=== PATIENT | female | born 1990 | race Caucasian/White ===

== ENCOUNTER 2016-12-22 19:35 | Emergency (ER) | payer BC, OTHER ==
[~2016-12-22] VITALS: Ht 182.9 cm; Wt 76.0 kg
[~2016-12-22 19:35] MED LIST: IBUP-232 PO; OXYC1TAB63 PO; SENN1TAB PO
[2016-12-22 19:39] VITALS: BP 118/68; PULSE 72; RESP 20; TEMP 98.1; O2SAT 99
--- NOTE | 2016-12-22 20:08 | PD ---
HPI Chief Complaint: GI Complaint Time Seen by Provider: 20:03 Travel History International Travel<30 days: No Contact w/Intl Traveler<30days: No Traveled to known affect area: No History of Present Illness HPI 26-year-old female presents to the emergency department by private transportation for evaluation of rectal bleeding. Patient states this morning she felt well. This afternoon she had a bowel movement and noticed that slight stinging discomfort and some small amount of blood in the toilet water. Patient states later this afternoon she had urge to have a bowel movement and again passed this time a large amount of blood in the toilet. Patient thinks that she may have hemorrhoids. Patient is encouraged come to the hospital by her fit father who is a PA. Patient states intermittently she has had some left -sided lower abdominal pain. Patient denies . Patient has an IUD. Patient's had no abnormal vaginal bleeding. No dysuria frequency or urgency. No fever chills or nausea or vomiting. Patient does not report any shortness of breath diaphoresis near-syncope or syncope. Patient states this time her pain is 0/10 in intensity but with bowel movement pain can be as severe as 7/10 in intensity. 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 [facility] Past Medical History Narrative Medical IUD; ,Lasik; no tobacco; nursing notes reviewed Medical History: Denies Significant Hx Tetanus Vaccination: < 5 Years Influenza Vaccination: Yes ?: Not LMP: IUD Past Surgical History Section: Yes Eye Surgery: Yes (Lasik) Social History Alcohol Use: No Tobacco Use: No Substance Use: No Allergies-Medications (Allergen,Severity, Reaction): Coded Allergies: Penicillin (Verified Allergy, Mild, 12/22/16) Reported Meds & Prescriptions Reported Meds & Active Scripts Active Narrative Medication steroid eye drops-Lasik Review of Systems Except as stated in HPI: all other systems reviewed are Neg General / Constitutional: No: Fever, Chills Cardiovascular: No: Chest Pain or Discomfort Gastrointestinal: Positive: Abdominal Pain, Hematochezia, No: Nausea, Vomiting Genitourinary: No: Dysuria, Hematuria, Vaginal Bleeding Musculoskeletal: No: Pain Neurologic: No: Weakness Hematologic/Lymphatic: No: Lymph Node Enlargement Physical Exam Narrative GENERAL: Well-developed well-nourished female in no acute distress no respiratory distress SKIN: Warm and dry. HEAD: Normocephalic. EYES: No scleral icterus. No injection or drainage. NECK: Supple, trachea midline. No JVD or lymphadenopathy. CARDIOVASCULAR: Regular rate and rhythm without murmurs, gallops, or rubs. RESPIRATORY: Breath sounds equal bilaterally. No accessory muscle use. GASTROINTESTINAL: Abdomen soft, mild suprapubic and left lower quadrant tenderness to palpation without guarding or rebound, nondistended. MUSCULOSKELETAL: No cyanosis, or edema. BACK: Nontender without obvious deformity. No CVA tenderness. Data Data Last Documented VS Vital Signs Date Time Temp Pulse Resp B/P Pulse Ox O2 Delivery O2 Flow Rate FiO2 12/22/16 20:37 78 16 114/63 80 16 118/67 79 16 109/62 12/22/16 20:21 99 Room Air 12/22/16 19:39 98.1 Orders Complete Blood Count With Diff (12/22/16 20:03) Comprehensive Metabolic Panel (12/22/16 20:03) Prothrombin Time / Inr (Pt) (12/22/16 20:03) Act Partial Throm Time (Ptt) (12/22/16 20:03) Urinalysis - C+S If Indicated (12/22/16 20:03) Type And Screen (12/22/16 20:03) Ecg Monitoring (12/22/16 20:03) Iv Access Insert/Monitor (12/22/16 20:03) Orthostatic Vital Signs (12/22/16 20:03) Oximetry (12/22/16 20:03) Ed Urine Pregnancytest Poc (12/22/16 20:03) Ct Abd/Pel W Iv Contrast(Rout) (12/22/16 ) Iohexol 350 Inj (Omnipaque 350 Inj) (12/22/16 21:41) Labs Laboratory Tests Test 12/22/16 12/22/16 20:13 20:27 White Blood Count 7.6 TH/MM3 Red Blood Count 4.78 MIL/MM3 Hemoglobin 12.6 GM/DL Hematocrit 37.6 % Mean Corpuscular Volume 78.6 FL Mean Corpuscular Hemoglobin 26.4 PG Mean Corpuscular Hemoglobin 33.6 % Concent Red Cell Distribution Width 13.3 % Platelet Count 178 TH/MM3 Mean Platelet Volume 10.8 FL Neutrophils (%) (Auto) 55.5 % Lymphocytes (%) (Auto) 34.5 % Monocytes (%) (Auto) 5.8 % Eosinophils (%) (Auto) 3.4 % Basophils (%) (Auto) 0.8 % Neutrophils # (Auto) 4.2 TH/MM3 Lymphocytes # (Auto) 2.6 TH/MM3 Monocytes # (Auto) 0.4 TH/MM3 Eosinophils # (Auto) 0.3 TH/MM3 Basophils # (Auto) 0.1 TH/MM3 CBC Comment DIFF FINAL Differential Comment Prothrombin Time 10.7 SEC Prothromb Time International 1.0 RATIO Ratio Activated Partial 25.4 SEC Thromboplast Time Sodium Level 143 MEQ/L Potassium Level 3.7 MEQ/L Chloride Level 107 MEQ/L Carbon Dioxide Level 28.4 MEQ/L Anion Gap 8 MEQ/L Blood Urea Nitrogen 12 MG/DL Creatinine 0.86 MG/DL Estimat Glomerular Filtration 81 ML/MIN Rate Random Glucose 78 MG/DL Calcium Level 8.7 MG/DL Total Bilirubin 0.3 MG/DL Aspartate Amino Transf 9 U/L (AST/SGOT) Alanine Aminotransferase 21 U/L (ALT/SGPT) Alkaline Phosphatase 80 U/L Total Protein 7.3 GM/DL Albumin 4.0 GM/DL Blood Type O POSITIVE Antibody Screen NEGATIVE Urine Color YELLOW Urine Turbidity CLEAR Urine pH 7.0 Urine Specific [place] 1.010 Urine Protein NEG mg/dL Urine Glucose (UA) NEG mg/dL Urine Ketones NEG mg/dL Urine Occult Blood TRACE Urine Nitrite NEG Urine Bilirubin NEG Urine Leukocyte Esterase SMALL Urine Squamous Epithelial 0-5 /hpf Cells Microscopic Urinalysis Comment CULT NOT INDICATED MDM Medical Decision Making Medical Screen Exam Complete: Yes Emergency Medical Condition: Yes Medical Record Reviewed: Yes Interpretation(s) poc hcg: negative UA: wnl grossly Last Impressions Abdomen/Pelvis CT 12/22/16 0000 Signed Impressions: Service Date/Time: Thursday, December 22, 2016 21:21 - CONCLUSION: 1. No obstruction or acute inflammatory changes. Etiology of left lower quadrant pain not seen. 2. Small right ovarian cyst. 3. 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 No stones or evidence of acute obstructive uropathy. 4. Normal appendix. Connor Funez MD CBC & BMP Diagram 12/22/16 20:13 Vital Signs Date Time Temp Pulse Resp B/P Pulse Ox O2 Delivery O2 Flow Rate FiO2 12/22/16 20:37 78 16 114/63 80 16 118/67 79 16 109/62 12/22/16 20:21 99 Room Air 12/22/16 19:39 98.1 72 20 118/68 99 Differential Diagnosis Rectal bleeding, internal hemorrhoids, colitis, diverticulitis, AVM Narrative Course IV access obtained specimens collected and sent for resulting orthostatic measurements performed; BP and heart rate are normal range at this time; Pain 0/ 10 Lab values had been normal range however patient reports additional episode of red blood per rectum; will proceed with CT abdomen and pelvis with IV contrast evaluate for colitis or other source of lower GI bleeding and intermittent LLQ and suprapubic pressure/pain. No additional bleeding in the emergency department; lab values and normal CT abdomen and pelvis results discussed with patient; patient's case discussed with on-call [facility] provider Dr. Snow will arrange for outpatient follow-up tomorrow It is 10:30 PM patient stable for outpatient management. Diagnosis Primary Impression: Rectal bleeding Referrals: Tangela Upton MD 1 day Patient Instructions: General Instructions Departure Forms: Tests/Procedures, Work Release Special Instructions: no work x 1 day Additional Instructions: Recommend clear liquid diet for next 12-24 hours advance as tolerated to bland/ Ned and regular diet as tolerated Monitor temperature for fever take as needed acetaminophen/Tylenol every 4 hours for fever 100.4F or greater or for pain Avoid nonsteroidal anti-infiltrate medication such as ibuprofen/Motrin/Advil or Aleve/Naprosyn/naproxen or aspirin Increase fluid hydration No work times one day Disposition: 01 DISCHARGE HOME Condition: Stable Saira Benites MD Dec 22, 2016 20:08
[2016-12-22 20:21] VITALS: O2SAT 99
[2016-12-22 20:31] LABS: CHLORIDE 107 MEQ/L (98-107); POTASSIUM 3.7 MEQ/L (3.5-5.1); SODIUM (NA) 143 MEQ/L (136-145)
[2016-12-22 20:34] LABS: BLOOD, URINE TRACE (NEG); GLUCOSE,URINE NEG (NEG); KETONE, URINE NEG (NEG); NITRITE,URINE NEG (NEG)
[2016-12-22 20:35] LABS: ANION GAP 8 MEQ/L (5-15); BICARBONATE 28.4 MEQ/L (21.0-32.0); BLOOD UREA NITROGEN 12 MG/DL (7-18)
[2016-12-22 20:37] VITALS: BP_SYST 109; BP_SYST 114; BP_SYST 118; BP_DIAS 62; BP_DIAS 63; BP_DIAS 67; RESP 16
[2016-12-22 20:37] LABS: APTT (PATIENT) 25.4 SEC (24.3-30.1); PROTHROMBIN TIME - PATIENT 10.7 SEC (9.8-11.6)
[2016-12-22 20:38] LABS: ALT (GPT) 21 U/L (10-53); AST (GOT) 9 U/L (15-37); GLOMERULAR FILTRATION RATE 81 ML/MIN (>89)
[2016-12-22 20:39] LABS: AUTOMATED NEUTROPHIL # 4.2 TH/MM3 (1.8-7.7); BASOPHIL # 0.1 TH/MM3 (0-0.2); BASOPHIL % 0.8 % (0.0-2.0); EOSINOPHIL # 0.3 TH/MM3 (0-0.4); EOSINOPHIL % 3.4 % (0.0-4.0); HEMATOCRIT 37.6 % (35.0-46.0); HEMO FLAGS DIFF FINAL; LYMPH % 34.5 % (9.0-44.0); LYMPHOCYTE # 2.6 TH/MM3 (1.0-4.8); MEAN CELL VOLUME 78.6 FL (80.0-100.0); MEAN CORPUSCULAR HEMOGLOBIN 26.4 PG (27.0-34.0); MEAN CORPUSCULAR HGB CONC 33.6 % (32.0-36.0); MONO % 5.8 % (0.0-8.0); NEUT % 55.5 % (16.0-70.0); PLATELET COUNT 178 TH/MM3 (150-450); RED BLOOD COUNT 4.78 MIL/MM3 (4.00-5.30); RED CELL DISTRIBUTION WIDTH 13.3 % (11.6-17.2); WHITE BLOOD COUNT 7.6 TH/MM3 (4.0-11.0)
[2016-12-22 20:40] LABS: TOTAL BILIRUBIN ADULT 0.3 MG/DL (0.2-1.0)
[2016-12-22 20:41] LABS: ALKALINE PHOSPHATASE 80 U/L (45-117)
[2016-12-22 20:50] LABS: SQUAMOUS EPITHELIAL CELL URINE 0-5 /hpf (0-5); URINE COLOR YELLOW (YELLW/STRAW)
[2016-12-22 20:51] LABS: COMMENT (UR) CULT NOT INDICATED; CULTURE IF INDICATED CULT NOT INDICATED
[2016-12-22] MEDS ORDERED: IOHEXOL 350 MG/ML 10 ML VIAL (for RAD DIAG) IV ONE (21:41)
--- NOTE | 2016-12-22 21:52 | RADHPO ---
EXAM DATE/TIME: 12/22/2016 21:21 [facility] COMPARISON: No previous studies available for comparison. INDICATIONS : Left lower quadrant pain and rectal bleeding. IV CONTRAST: 91 cc Omnipaque 350 (iohexol) IV ORAL CONTRAST: No oral contrast ingested. RADIATION DOSE: 7.97 CTDIvol (mGy) MEDICAL HISTORY : None SURGICAL HISTORY : section. ENCOUNTER: Initial ACUITY: 1 day PAIN SCALE: 7/10 LOCATION: Left lower quadrant TECHNIQUE: Volumetric scanning of the abdomen and pelvis was performed. Using automated exposure control and ad justment of the mA and/or kV according to patient size, radiation dose was kept as low as reasonably achievable to obtain optimal diagnostic quality images. FINDINGS: LOWER LUNGS: The visualized lower lungs are clear. LIVER: Homogeneous density without lesion. There is no dilation of the biliary tree. No calcified gallston es. SPLEEN: Normal size without lesion. PANCREAS: Within normal limits. KIDNEYS: Prominent bilateral extrarenal pelves, especially on the right. Low-grade congenital UPJ obstruction possible. No stone demonstrated. ADRENAL GLANDS: Within normal limits. VASCULAR: There is no aortic aneurysm. BOWEL/MESENTERY: The stomach, small bowel, and colon demonstrate no acute abnormality. There is no free intraperitone al air or fluid. The appendix is well-visualized, normal. ABDOMINAL WALL: Within normal limits. RETROPERITONEUM: There is no lymphadenopathy. BLADDER: No wall thickening or mass. REPRODUCTIVE: There is a 16 mm cyst of the right ovary. IUD present, appears appropriately positioned. INGUINAL: There is no lymphadenopathy or hernia. MUSCULOSKELETAL: Within normal limits for patient age. CONCLUSION: 1. No obstruction or acute inflammatory changes. Etiology of left lower quadrant pain not seen. 2. Small right ovarian cyst. 3. 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 No stones or evidence of acute obstructive uropa thy. 4. Normal appendix. Connor Funez MD on December 22, 2016 at 21:47 Board Certified Radiologist. This report was verified electronically.
[2016-12-22 22:51] VITALS: BP 118/66; PULSE 72; RESP 18; O2SAT 99
== END 2016-12-22 23:03 | disposition home or self-care (01) ==
LOC: PHED 19:35
DX: K62.5 Hemorrhage of anus and rectum (principal); R10.32 Left lower quadrant pain
CPT/HCPCS: 74177; 80053; 81001; 84703; 85025; 85610; 85730; 86850; 86900; 86901; 99284; Q9967

== ENCOUNTER 2017-09-30 11:46 | Emergency (ER) | payer OTHER, BC ==
[2017-09-30 12:09] VITALS: BP 128/75; PULSE 70; RESP 20; TEMP 98.4; O2SAT 100
[2017-09-30 13:40] LABS: AUTOMATED NEUTROPHIL # 3.5 TH/MM3 (1.8-7.7); BASOPHIL # 0.1 TH/MM3 (0-0.2); EOSINOPHIL # 0.2 TH/MM3 (0-0.4); EOSINOPHIL % 2.8 % (0.0-4.0); HEMATOCRIT 38.3 % (35.0-46.0); HEMOGLOBIN 12.9 GM/DL (11.6-15.3); LYMPH % 39.2 % (9.0-44.0); LYMPHOCYTE # 2.6 TH/MM3 (1.0-4.8); MEAN CELL VOLUME 83.6 FL (80.0-100.0); MEAN CORPUSCULAR HEMOGLOBIN 28.2 PG (27.0-34.0); MEAN CORPUSCULAR HGB CONC 33.7 % (32.0-36.0); MONO % 4.5 % (0.0-8.0); MONOCYTE # 0.3 TH/MM3 (0-0.9); NEUT % 52.5 % (16.0-70.0); PLATELET COUNT 172 TH/MM3 (150-450); RED BLOOD COUNT 4.58 MIL/MM3 (4.00-5.30); RED CELL DISTRIBUTION WIDTH 13.4 % (11.6-17.2); WHITE BLOOD COUNT 6.6 TH/MM3 (4.0-11.0)
[2017-09-30 13:46] LABS: BILIRUBIN, URINE NEG (NEG); BLOOD, URINE NEG (NEG); GLUCOSE,URINE NEG (NEG); KETONE, URINE NEG (NEG); MUCUS URINE FEW /lpf (OCC); NITRITE,URINE NEG (NEG); PH, URINE 5.5 (5.0-8.5); SQUAMOUS EPITHELIAL CELL URINE 2 /hpf (0-5); URINE COLOR LIGHT-YELLOW (YELLW/STRAW); URINE LEUKOCYTE ESTERASE NEG (NEG)
[2017-09-30 13:50] LABS: PROTHROMBIN TIME - PATIENT 10.5 SEC (9.8-11.6)
[2017-09-30 13:57] LABS: ALBUMIN 4.2 GM/DL (3.4-5.0); AST (GOT) 10 U/L (15-37); BLOOD UREA NITROGEN 18 MG/DL (7-18); CALCIUM 8.9 MG/DL (8.5-10.1); CHLORIDE 105 MEQ/L (98-107); CREATININE 0.89 MG/DL (0.50-1.00); GLOMERULAR FILTRATION RATE 77 ML/MIN (>89); GLUCOSE,RANDOM 78 MG/DL (74-106); SODIUM (NA) 138 MEQ/L (136-145)
[2017-09-30 14:02] LABS: ALKALINE PHOSPHATASE 65 U/L (45-117); ALT (GPT) 15 U/L (10-53); TOTAL BILIRUBIN ADULT 0.6 MG/DL (0.2-1.0); TOTAL PROTEIN 7.4 GM/DL (6.4-8.2); TROPONIN I LESS THAN 0.02 NG/ML (0.02-0.05)
--- NOTE | 2017-09-30 14:47 | RADRPT ---
EXAM DATE/TIME: 09/30/2017 13:56 [facility] COMPARISON: No previous studies available for comparison. INDICATIONS : Complains of right sided weakness after sharp right flank pain RADIATION DOSE: 56.35 CTDIvol (mGy) MEDICAL HISTORY : None SURGICAL HISTORY : None. ENCOUNTER: Initial ACUITY: 1 day PAIN SCALE: 0/10 LOCATION: Right cranial TECHNIQUE: Multiple contiguous axial images were obtained of the head. Using automated exposure control and adj ustment of the mA and/or kV according to patient size, radiation dose was kept as low as reasonably a chievable to obtain optimal diagnostic quality images. DICOM format image data is available electro nically for review and comparison. FINDINGS: CEREBRUM: The ventricles are normal for age. No evidence of midline shift, mass lesion, hemorrhage or acute in farction. No extra-axial fluid collections are seen. POSTERIOR FOSSA: The cerebellum and brainstem are intact. The 4th ventricle is midline. The cerebellopontine angle i s unremarkable. EXTRACRANIAL: The visualized portion of the orbits is intact. SKULL: The calvaria is intact. No evidence of skull fracture. CONCLUSION: Normal examination. Connor Rodrigues MD on September 30, 2017 at 14:44 Board Certified Radiologist. This report was verified electronically.
[2017-09-30] MEDS ORDERED: SODIUM CHLOR 0.9% 1000 ML INJ 1,000 ML IV ONE (16:45)
--- NOTE | 2017-09-30 18:04 | RADRPT ---
EXAM DATE/TIME: 09/30/2017 17:43 [facility] COMPARISON: No previous studies available for comparison. INDICATIONS : Right side pain,feels week. ORAL CONTRAST: No oral contrast ingested. RADIATION DOSE: 5.64 CTDIvol (mGy) MEDICAL HISTORY : None SURGICAL HISTORY : None. ENCOUNTER: Initial ACUITY: 1 day PAIN SCALE: 10/10 LOCATION: Right Abdomen TECHNIQUE: Volumetric scanning of the abdomen and pelvis was performed. Using automated exposure control and ad justment of the mA and/or kV according to patient size, radiation dose was kept as low as reasonably achievable to obtain optimal diagnostic quality images. DICOM format image data is available electro nically for review and comparison. FINDINGS: LOWER LUNGS: The visualized lower lungs are clear. LIVER: Homogeneous density without lesion. There is no dilation of the biliary tree. No calcified gallston es. SPLEEN: Normal size without lesion. PANCREAS: Within normal limits. KIDNEYS: Normal in size and shape. There is no mass, stone, or hydronephrosis. ADRENAL GLANDS: Within normal limits. VASCULAR: There is no aortic aneurysm. BOWEL/MESENTERY: The stomach, small bowel, and colon demonstrate no acute abnormality. There is no free intraperitone al air or fluid. ABDOMINAL WALL: Within normal limits. RETROPERITONEUM: There is no lymphadenopathy. BLADDER: No wall thickening or mass. REPRODUCTIVE: Within normal limits. INGUINAL: There is no lymphadenopathy or hernia. MUSCULOSKELETAL: Within normal limits for patient age. CONCLUSION: 1. No acute findings. Intrauterine device present. Timbo Hummel MD on September 30, 2017 at 17:59 Board Certified Radiologist. This report was verified electronically.
--- NOTE | 2017-09-30 18:05 | PD ---
HPI Chief Complaint: Neuro Symptoms/ Deficits Time Seen by Provider: 16:32 Travel History International Travel<30 days: No Contact w/Intl Traveler<30days: No Traveled to known affect area: No History of Present Illness HPI Patient is a 27 year old female who comes in complaining of right flank pain. She says she was sitting at work when she got a sudden sharp pain to her right side. She says it has been coming and going and at one point it doubled her over in pain. She has not taken anything for the pain. She was concerned because after the pain, she felt "numbness" to her entire right side. She denies fever or chills. Right now she is not having any symptoms. She denies any dysuria, fever, chills, nausea or vomiting. Severity is mild. PFSH Past Medical History Medical other: Yes (polips, rectal hemmoroids ) ?: Not LMP: now Past Surgical History Section: Yes Eye Surgery: Yes (Lasik) Social History Alcohol Use: No Tobacco Use: No Substance Use: No Allergies-Medications (Allergen,Severity, Reaction): Coded Allergies: Penicillins (Verified Allergy, Severe, Anaphylaxis, 09/30/17) Reported Meds & Prescriptions Reported Meds & Active Scripts Active No Active Prescriptions or Reported Medications Review of Systems Except as stated in HPI: all other systems reviewed are Neg General / Constitutional: No: Fever, Chills HENT: No: Headaches, Lightheadedness Cardiovascular: No: Chest Pain or Discomfort Respiratory: No: Shortness of Breath Gastrointestinal: Positive: Abdominal Pain Genitourinary: Positive: Flank Pain Musculoskeletal: No: Myalgias Skin: No Rash, No Change in Pigmentation Neurologic: No: Weakness, Dizziness Physical Exam Narrative GENERAL: Awake and alert, in no acute distress. SKIN: Focused skin assessment warm/dry. No wounds or signs of infection. HEAD: Atraumatic. Normocephalic. EYES: Pupils equal and round. No scleral icterus. ENT: Mucous membranes pink and moist. NECK: Trachea midline. No JVD. CARDIOVASCULAR: Regular rate and rhythm. No murmur appreciated. RESPIRATORY: No accessory muscle use. Clear to auscultation. Breath sounds equal bilaterally. GASTROINTESTINAL: Abdomen soft, non-tender, nondistended. MUSCULOSKELETAL: No obvious deformities. No clubbing. No cyanosis. No edema. NEUROLOGICAL: Awake and alert. No obvious cranial nerve deficits. Motor grossly within normal limits. Normal speech. PSYCHIATRIC: Appropriate mood and affect; insight and judgment normal. Data Data Last Documented VS Vital Signs Date Time Temp Pulse Resp B/P (MAP) Pulse Ox O2 Delivery O2 Flow Rate FiO2 09/30/17 12:09 98.4 70 20 128/75 (92) 100 Orders Orders Electrocardiogram (09/30/17 12:12) Prothrombin Time / Inr (Pt) (09/30/17 12:12) Act Partial Throm Time (Ptt) (09/30/17 12:12) Complete Blood Count With Diff (09/30/17 12:12) Comprehensive Metabolic Panel (09/30/17 12:12) Creatine Kinase (Cpk) (09/30/17 12:12) Troponin I (09/30/17 12:12) Urinalysis - C+S If Indicated (09/30/17 12:12) Ct Brain W/O Iv Contrast(Rout) (09/30/17 12:12) Ct Abd/Pel W/O Iv Contrast (09/30/17 ) Iv Access Insert/Monitor (09/30/17 16:39) Sodium Chlor 0.9% 1000 Ml Inj (Ns 1000 M (09/30/17 16:45) Ketorolac Inj (Toradol Inj) (09/30/17 18:45) Labs Laboratory Tests Test 09/30/17 12:54 White Blood Count 6.6 TH/MM3 Red Blood Count 4.58 MIL/MM3 Hemoglobin 12.9 GM/DL Hematocrit 38.3 % Mean Corpuscular Volume 83.6 FL Mean Corpuscular Hemoglobin 28.2 PG Mean Corpuscular Hemoglobin Concent 33.7 % Red Cell Distribution Width 13.4 % Platelet Count 172 TH/MM3 Mean Platelet Volume 10.0 FL Neutrophils (%) (Auto) 52.5 % Lymphocytes (%) (Auto) 39.2 % Monocytes (%) (Auto) 4.5 % Eosinophils (%) (Auto) 2.8 % Basophils (%) (Auto) 1.0 % Neutrophils # (Auto) 3.5 TH/MM3 Lymphocytes # (Auto) 2.6 TH/MM3 Monocytes # (Auto) 0.3 TH/MM3 Eosinophils # (Auto) 0.2 TH/MM3 Basophils # (Auto) 0.1 TH/MM3 CBC Comment DIFF FINAL Differential Comment Prothrombin Time 10.5 SEC Prothromb Time International Ratio 1.0 RATIO Activated Partial Thromboplast Time 25.5 SEC Urine Color LIGHT-YELLOW Urine Turbidity CLEAR Urine pH 5.5 Urine Specific [place] 1.010 Urine Protein NEG mg/dL Urine Glucose (UA) NEG mg/dL Urine Ketones NEG mg/dL Urine Occult Blood NEG Urine Nitrite NEG Urine Bilirubin NEG Urine Urobilinogen LESS THAN 2.0 MG/DL Urine Leukocyte Esterase NEG Urine RBC LESS THAN 1 /hpf Urine WBC 1 /hpf Urine Squamous Epithelial Cells 2 /hpf Urine Mucus FEW /lpf Microscopic Urinalysis Comment CATH-CULT NOT IND Blood Urea Nitrogen 18 MG/DL Creatinine 0.89 MG/DL Random Glucose 78 MG/DL Total Protein 7.4 GM/DL Albumin 4.2 GM/DL Calcium Level 8.9 MG/DL Alkaline Phosphatase 65 U/L Aspartate Amino Transf (AST/SGOT) 10 U/L Alanine Aminotransferase (ALT/SGPT) 15 U/L Total Bilirubin 0.6 MG/DL Sodium Level 138 MEQ/L Potassium Level 3.7 MEQ/L Chloride Level 105 MEQ/L Carbon Dioxide Level 24.0 MEQ/L Anion Gap 9 MEQ/L Estimat Glomerular Filtration Rate 77 ML/MIN Total Creatine Kinase 66 U/L Troponin I LESS THAN 0.02 NG/ML MDM Medical Decision Making Medical Screen Exam Complete: Yes Emergency Medical Condition: Yes Differential Diagnosis UTI vs pyelonephritis vs renal stone Narrative Course Patient is a 27-year-old female comes in complaining of right flank pain. Exam shows no acute abnormalities, no neurologic abnormalities. IV established, labs sent. Labs show no acute abnormalities. CT head performed shows no acute abnormalities. Patient given IV fluids. CT abdomen and pelvis performed shows no acute abnormalities. Last [address] 09/30/17 1212 Signed Impressions: Service Date/Time: Saturday, September 30, 2017 13:56 - CONCLUSION: Normal examination. Connor Rodrigues MD Abdomen/Pelvis CT 09/30/17 0000 Signed Impressions: Service Date/Time: Saturday, September 30, 2017 17:43 - CONCLUSION: 1. No acute findings. Intrauterine device present. Timbo Hummel MD Patient given Toradol. Advised to take ibuprofen if the pain returns. Advised to follow-up with a primary doctor. Advised return anytime for any worsening symptoms. Diagnosis Primary Impression: Flank pain Patient Instructions: Flank Pain (ED), General Instructions Additional Instructions: Drink plenty of fluids. Take ibuprofen as needed for pain. Follow-up with your doctor. Return to the ED as needed for any worsening symptoms. Scripts No Active Prescriptions or Reported Meds Disposition: 01 DISCHARGE HOME Condition: Stable Eileen Villalobos MD Sep 30, 2017 18:05
[2017-09-30] MEDS ORDERED: KETOROLAC TROMETHAMINE 30 MG/ML (IVP) VIAL IV PUSH ONE (18:45)
--- NOTE | 2017-09-30 19:30 | EKG ---
Date Performed: 09/30/2017 Time Performed: 12:49:15 PTAGE: 27 years EKG: SINUS BRADYCARDIA WITH SINUS ARRHYTHMIA POSSIBLE RIGHT VENTRICULAR CONDUCTION DELAY BORDERL INE ECG Compared to prior electrocardiogram, Rate has slowed and possible right ventricular conductio n delay is present. PREVIOUS TRACING : 03/06/2009 18.20 DOCTOR: Mehran Newman Interpretating Date/Time 09/30/2017 19:29:20
== END 2017-09-30 19:38 | disposition home or self-care (01) ==
LOC: NEPE 11:46
DX: R10.9 Unspecified abdominal pain (principal); R94.31 Abnormal electrocardiogram [ECG] [EKG]; R20.0 Anesthesia of skin; Z97.5 Presence of (intrauterine) contraceptive device
CPT/HCPCS: 70450; 74176; 80053; 81001; 82550; 84484; 85025; 85610; 85730; 93005; 96374; 99284; J1885; J7030